=== PATIENT | male | born 1995 | race Caucasian/White ===

== ENCOUNTER 2021-02-11 15:41 | Emergency (ER) | payer OTHER, SELFPAY ==
--- NOTE | ~2021-02-11 | XR_ITS ---
EXAMINATION: XR knee RT min 4V DATE: 02/11/2021 16:16 INDICATION: Twisting right knee injury TECHNIQUE: Anteroposterior, 2 oblique and crosstable lateral views of the right knee were obtained COMPARISON: None. FINDINGS: Bone alignment is normal. No acute appearing fractures identified. There is subtle cortical irregular ity overlying a subtle lucency along the anterior weightbearing lateral femoral condyle suspicious fo r a chronic osteochondral lesion. Additional cortical irregularity suggesting osteophyte formation as sociated with additional osteochondral lesion at the caudal aspect of the patellar apical ridge and m edial facet. There is a small ossicle with corticated margins along the inferior aspect of the articu lar surface of the patella and a few additional smaller ossific densities along the posterolateral as pect of the lateral tibial plateau likely representing loose osteochondral body/displaced osteochondr al fragments. Joint spaces appear relatively preserved on nonweightbearing imaging. Small marginal os teophytes at the lateral and patellofemoral compartments. Small right knee joint effusion without lay ering lipohemarthrosis. Soft tissues are unremarkable. IMPRESSION: 1. Suggestion of chronic osteochondral lesions at the weightbearing lateral femoral condyle and at th e inferior patellar apical ridge along with a few small degenerative loose bodies versus displaced os teochondral fragments as detailed above. No definitive acute osseous abnormality but would recommend correlation with any prior outside imaging to assess for interval change/progression. 2. Small right knee joint effusion. Reviewed, dictated and finalized at location B. IMPRESSION: 1. Suggestion of chronic osteochondral lesions at the weightbearing lateral fem oral condyle and at the inferior patellar apical ridge along with a few small d egenerative loose bodies versus displaced osteochondral fragments as detailed a eitan. No definitive acute osseous abnormality but would recommend correlation w ith any prior outside imaging to assess for interval change/progression. 2. Small right knee joint effusion.
[2021-02-11 15:54] VITALS: BP 137/78; PULSE 84; RESP 16; TEMP 36.9; O2SAT 98
--- NOTE | 2021-02-11 16:44 | ED.LOWEXIN ---
HPI - Extremity Injury (Lower) General Chief Complaint: Extremity Injury, Lower Stated Complaint: right knee pain Time Seen by Provider: 02/11/21 16:21 Source: patient and RN notes reviewed Mode of arrival: ambulatory Limitations: no limitations History of Present Illness HPI Narrative: Patient presents today complaining of right knee pain. He has been painful for the last 5 days. Denies any known injury, but states he may have twisted his knee getting out of bed. Denies numbness or tingling in the leg or foot. Reports multiple previous injuries to the currently affected knee. Knows that he has some loose bone and cartilage in the area that needs some exploratory surgery. Patient does have an orthopedist that he sees. Currently rates his pain 3/10 and has been taking ibuprofen and Tylenol as well as using a heating pad without much relief. Pain increases with weightbearing. Related Data Allergies Allergy/AdvReac Type Severity Reaction Status Date / Time No Known Allergies Allergy Verified 02/11/21 15:52 Review of Systems Review of Systems: Narrative: CONSTITUTIONAL: Denies body aches, fever, chills, or sweats. EYES: Denies visual changes, redness, or discharge. ENT: Denies rhinorrhea, congestion, sore throat, or otalgia. CARDIOVASCULAR: Denies chest pain, palpitations, or edema. RESPIRATORY: Denies cough or dyspnea. GASTROINTESTINAL: Denies abdominal pain, nausea, vomiting, or diarrhea. GENITOURINARY: Denies dysuria or hematuria. SKIN: Denies rash, itching, or wounds. MUSCULOSKELETAL: Denies back pain, or myalgia. + Right knee pain NEUROLOGIC: Denies headache, numbness, tingling, or weakness. PSYCH: Denies depression or anxiety. [facility] Past Medical History Medical History (Updated 02/11/21 @ 16:49 by Delaney Reed, [facility], ) ADHD Knee fracture, right Right knee meniscal tear Comments At time of signature, I have reviewed and agree with nursing past medical, surgical, social and family history unless otherwise noted. Please see nursing chart for further information. There is no relevant family history pertinent to the presenting complaint Exam Narrative: Exam Narrative: GENERAL: Well-appearing, well-nourished, and in no acute distress. HEAD: Normocephalic, atraumatic. EYES: EOMI. No redness or drainage. Conjunctivae normal. ENT: Mucous membranes pink and moist. NECK: Normal AROM. CHEST: No respiratory distress. EXTREMITIES: Right knee: Tenderness to the lateral bony portion of the knee. No edema about the knee. Pain to the lateral knee with active knee flexion against resistance, as well as passive internal rotation. Distal sensation intact. Capillary refill normal. Posterior tibial pulse normal. SKIN: Warm, dry, no rash. Capillary refill normal. Normal skin turgor. NEURO: No focal deficits. Alert and oriented x3. Gait steady. PSYCH: Normal affect. No signs of depression or anxiety. Course Vital Signs Vital signs: Vital Signs Temperature 98.4 F 02/11/21 15:54 Pulse Rate 84 02/11/21 15:54 Respiratory Rate 16 02/11/21 15:54 Blood Pressure 137/78 02/11/21 15:54 Pulse Oximetry 98 02/11/21 15:54 Temperature 98.4 F 02/11/21 15:54 Pulse Rate 84 02/11/21 15:54 Respiratory Rate 16 02/11/21 15:54 Blood Pressure 137/78 02/11/21 15:54 Pulse Oximetry 98 02/11/21 15:54 Reviewed. Pt has been instructed to follow up with his PCP regarding his elevated blood pressure today. MDM - Extremity Injury (Lower) Differential Diagnosis Differential diagnosis: Likely other (Knee strain, tendinitis, ligamental injury, meniscus tear, chronic knee pain exacerbation) Imaging Data Radiologist's impression: ITS Impressions Knee X-Ray 02/11/21 16:23 IMPRESSION: 1. Suggestion of chronic osteochondral lesions at the weightbearing lateral femoral condyle and at the inferior patellar apical ridge along with a few small degenerative loose bodies versus displaced osteochondral fragmen
== END 2021-02-11 16:59 | disposition home or self-care (01) ==
PROVIDERS: Emergency Provider Nurse Practitioner
DX: M25.561 Pain in right knee (principal)
CPT/HCPCS: 73564; 99213; G0463

== ENCOUNTER 2021-12-04 09:33 | Emergency (ER) | payer SELFPAY ==
--- NOTE | ~2021-12-04 | XR_ITS ---
EXAMINATION: XR ribs LT 2V w CXR 2V DATE: 12/04/2021 10:59 INDICATION: Left posterior mid back pain and swelling with cough. TECHNIQUE: A frontal inspiratory view of the chest and 3 views of the left ribs were obtained. COMPARISON: Chest radiograph dated 10/09/2019 FINDINGS: No rib fractures identified. Lungs are clear with no focal airspace opacities, pulmonary edema, pleur al effusion or pneumothorax. Cardiomediastinal silhouette is normal. Mild 3 component scoliosis of th e thoracic and lumbar spine with mid to lower thoracic dextrocurvature and levocurvature in the more cephalad thoracic and more caudal thoracolumbar spine. IMPRESSION: 1. No rib fracture or acute cardiopulmonary disease. Reviewed, dictated and finalized at location B. [employer]
[2021-12-04 09:41] VITALS: BP 135/80; PULSE 108; RESP 14; TEMP 37.2; O2SAT 100
--- NOTE | 2021-12-04 10:50 | ED.BACK ---
HPI - Back Pain/Injury General Chief Complaint: Back Pain/Injury Stated Complaint: Back Pain Source: patient and RN notes reviewed Mode of arrival: ambulatory History of Present Illness HPI Narrative: This is a 26-year-old male who presented for complaint of left back and rib pain for about 1 week. States pain is constant, sharp, stabbing. Rates pain 3-7 out of 10. States laying down helps it feel better. Has taken ibuprofen and icy hot. Also had a muscle relaxer at home that did not provide any relief. Patient is not vaccinated for Covid. He denies lower extremity numbness or tingling, or change in gait. He endorses occasional shortness of breath with exertion, cough, nonproductive, and one episode of fever/chills and fatigue. Related Data Allergies Allergy/AdvReac Type Severity Reaction Status Date / Time No Known Allergies Allergy Verified 12/04/21 09:57 Review of Systems Review of Systems: CONSTITUTIONAL: Denies body aches EYES: Denies visual changes, redness, or discharge. ENT: Denies rhinorrhea, congestion, sore throat, or otalgia. CARDIOVASCULAR: Denies chest pain, palpitations, or edema. RESPIRATORY: endorses cough or dyspnea. GASTROINTESTINAL: Denies abdominal pain, nausea, vomiting, or diarrhea. GENITOURINARY: Denies dysuria or hematuria. SKIN: Denies rash, itching, or wounds. MUSCULOSKELETAL: Denies back pain, joint pain, or myalgia. NEUROLOGIC: Denies headache, numbness, tingling, or weakness. PSYCH: Denies depression or anxiety. [facility] Past Medical History Medical History ADHD Knee fracture, right Right knee meniscal tear Family History Family History (Updated 12/04/21 @ 10:54 by Irais Pena APRN) Other Family history non-contributory Exam Narrative: GENERAL: Well-appearing, well-nourished, and in no acute distress. Appears in pain. HEAD: Normocephalic, atraumatic. EYES: EOMI. No redness or drainage. Conjunctivae normal. ENT: Mucous membranes pink and moist. Nares clear. NECK: Normal AROM. Supple. No lymphadenopathy. CHEST: No respiratory distress. Clear to auscultation. HEART: Regular rate and rhythm. No murmur appreciated. Normal peripheral pulses. ABDOMEN: Soft, nontender, nondistended, normal active bowel sounds. MUSCULOSKELETAL: left chest pain with deep inspiration, tenderness with palpation to left lateral chest EXTREMITIES: Normal range of motion. No edema. SKIN: Warm, dry, no rash. Capillary refill normal. Normal skin turgor. NEURO: No focal deficits. Alert and oriented x3. Gait steady. PSYCH: Normal affect. No signs of depression or anxiety. Course Course Level of Care: Express Care Visit Vital Signs Vital signs: Vital Signs Temperature 99 F 12/04/21 09:41 Pulse Rate 108 H 12/04/21 09:41 Respiratory Rate 14 12/04/21 09:41 Blood Pressure 135/80 12/04/21 09:41 Pulse Oximetry 100 12/04/21 09:41 Temperature 99 F 12/04/21 09:41 Pulse Rate 108 H 12/04/21 09:41 Respiratory Rate 14 12/04/21 09:41 Blood Pressure 135/80 12/04/21 09:41 Pulse Oximetry 100 12/04/21 09:41 MDM - Back Pain/Injury MDM Narrative Medical decision making narrative: Urine neg Differential Diagnosis Differential diagnosis: Likely strain of lumbar region and thoracic back pain Lab Data Attestation: I reviewed the patient's lab results. Labs: Urine Glucose Negative Reference Range: Negative Urine Bilirubin Negative Reference Range: Negative Urine Ketone Negative Reference Range: Negative Urine Specific [place] 1.025 Reference Range:1.001-1.035 Urine Blood Negative
--- NOTE | 2021-12-04 11:26 | PC.NURSE ---
NO UC ORDERED PER PROVIDER
== END 2021-12-04 11:20 | disposition home or self-care (01) ==
PROVIDERS: Emergency Provider Nurse Practitioner Family; PCP Nurse Practitioner Family
DX: M54.9 Dorsalgia, unspecified (principal)
CPT/HCPCS: 71046; 71100; 81003; 99213; G0463

== ENCOUNTER 2024-05-11 11:34 | Emergency (ER) | payer BC, SELFPAY ==
[2024-05-11 11:43] VITALS: BP 133/78; PULSE 83; RESP 16; TEMP 37.2; O2SAT 100
--- NOTE | 2024-05-11 12:28 | ED.BURNSMOKE ---
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 Patient has some small blisters to the blisters to dorsal aspects of 3-5 fingers and large blister fluid filled to the 2nd dorsal finger. Patient denies acute pain to his fingers, has full mobility of his fingers with strong right radial pulse. 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 CARDIOVASCULAR: Denies chest pain, palpitations, or edema. RESPIRATORY: Denies cough or dyspnea. GASTROINTESTINAL: Denies abdominal pain, nausea, vomiting SKIN: Reports marshall to 2-5 fingers dorsal aspect right hand with some blister formation, large blister noted to right index finger MUSCULOSKELETAL: Denies myalgia. NEUROLOGIC: Denies headache, numbness All systems reviewed & are unremarkable except as noted in HPI and below [facility] Past Medical History Medical History (Updated 05/12/24 @ 15:55 by Isabel Ramírez NP) ADHD Fracture of finger, left, closed 3rd and 4th Fracture of left foot Fracture of left wrist Fracture of right elbow Knee fracture, right Right knee meniscal tear Family History Family History Other Family history non-contributory Social History Social History Smoking status: Never smoker Alcohol intake: current Alcohol use details: social Substance use type: does not use Gender identity (if verbalized by the patient): Male Comments At time of signature, agree with nursing past medical, surgical, social and family history. There is no relevant family history pertinent to the presenting complaint Exam Narrative: GENERAL: Well-appearing, well-nourished, and in no acute distress. HEAD: Normocephalic, atraumatic. EYES: PERRLA and EOMI. ENT: Nares clear, no rhinorrhea or epistaxis. Mucous membranes moist. NECK: Supple. no lymphadenopathy CHEST: Clear to auscultation. No respiratory distress.SAO2 100% on room air HEART: Regular rate and rhythm. No murmur heard. Normal peripheral pulses. ABDOMEN: Soft, nontender, nondistended, normal active bowel sounds. EXTREMITIES: Normal range of motion. No edema. SKIN: Warm, dry. Erythema, induration, tenderness, with blister formation to right fingers dorsal area, 4cm X 2.5cm blister noted to dorsal right index finger, Patient reports no acute pain to fingers, he has full mobility, denies any tingling or numbness to fingers strong right radial pulse NEURO: No focal deficits. Alert and oriented x3. Course Course Emergency Course: Patient is aware of diagnosis, understands and agrees to treatment plan. Anticipatory guidance given. Patient agrees to follow-up as directed and is aware of reasons to seek care at the emergency department. Portions of this record may have been created with voice recognition software Level of Care: Express Care Visit Vital Signs Vital signs: Vital Signs Temperature 37.2 C 05/11/24 11:43 Pulse Rate 83 05/11/24 11:43 Respiratory R
== END 2024-05-11 13:07 | disposition home or self-care (01) ==
PROVIDERS: Emergency Provider Registered Nurse
DX: T23.231A Burn of second degree of multiple right fingers (nail), not including thumb, initial encounter (principal); X10.2XXA Contact with fats and cooking oils, initial encounter; Y99.0 Civilian activity done for income or pay
CPT/HCPCS: 16020; 99213; A9270; G0463